=== PATIENT | female | born 1955 | race African-American/Black ===

== ENCOUNTER → 2016-12-11 | Outpatient (CLI) | payer BC ==
[2016-08-09 06:45] VITALS: BP 163/79
[~2016-12-11] MED LIST: ATEN25TA PO; CYCL5TAB PO; FURO-68 PO
--- NOTE | 2016-12-11 12:51 | RAD ---
EXAM: Right hand, 3 views. HISTORY: Pain. COMPARISON: None. FINDINGS: Frontal, lateral and oblique views of the right hand are obtained. There is no fracture, dislocation or subluxation. There is mild first carpometacarpal spurring. IMPRESSION: 1. No acute osseous finding. 2. Mild first carpometacarpal osteoarthritis.
== END | disposition home or self-care (01) ==
LOC: RAD 10:55
PROVIDERS: ATTEND Internal Medicine
DX: M19.041 Primary osteoarthritis, right hand (principal)
CPT/HCPCS: 73130

== ENCOUNTER → 2017-04-04 | Outpatient (CLI) | payer BC ==
[2016-08-09 06:45] VITALS: BP 163/79
[2017-04-04 11:11] LABS: BASO % 0 % (0-3); EOS % 1 % (0-3); HEMATOCRIT 37.2 % (36.0-47.0); HEMOGLOBIN 11.8 g/dL (12.0-15.5); LYMPH # 1.5 x10^3/uL (1.0-4.8); LYMPH % 36 % (24-48); MEAN CORPUSCULAR HEMOGLOBIN 25 pg (25-35); MEAN CORPUSCULAR HGB CONC 32 g/dL (31-37); MEAN CORPUSCULAR VOLUME 79 fL (79-100); MONO % 8 % (0-9); NEUT % 54 % (31-73); PLATELET COUNT 206 x10^3/uL (140-400); RED BLOOD COUNT 4.72 x10^6/uL (3.50-5.40); RED CELL DISTRIBUTION WIDTH 14.9 % (11.5-14.5); WHITE BLOOD COUNT 4.3 x10^3/uL (4.0-11.0)
[2017-04-04 11:38] LABS: BACTERIA,URINE MANY /HPF (0-FEW); BILIRUBIN,URINE NEGATIVE (NEG); GLUCOSE,URINE NEGATIVE (NEG); NITRITE,URINE POSITIVE (NEG); PROTEIN,URINE NEGATIVE (NEG-TRACE); RBC,URINE 0 /HPF (0-2); SQUAMOUS EPITHELIAL CELL,UR MOD /LPF; WBC,URINE OCC /HPF (0-4)
[2017-04-04 12:10] LABS: ALBUMIN 3.4 g/dL (3.4-5.0); ALBUMIN/GLOBULIN RATIO 0.8 (1.0-1.7); CALCIUM 9.2 mg/dL (8.5-10.1); CREATININE 0.9 mg/dL (0.6-1.0); POTASSIUM 3.8 mmol/L (3.5-5.1); TOTAL BILIRUBIN 0.6 mg/dL (0.2-1.0); TOTAL PROTEIN 7.9 g/dL (6.4-8.2)
[2017-04-04 12:11] LABS: CHOLESTEROL/HDL RATIO 2.7
== END | disposition home or self-care (01) ==
LOC: LAB 10:23
PROVIDERS: ATTEND Internal Medicine
DX: I10 Essential (primary) hypertension (principal)
CPT/HCPCS: 36415; 80053; 80061; 81001; 83036; 84443; 85027; 87086; 87186

== ENCOUNTER 2017-07-02 10:44 | Inpatient (IN) | payer BC ==
[~2017-07-02] VITALS: Ht 152.4 cm; Wt 90.7 kg
[2017-07-02] MEDS ORDERED: ASPIRIN CHEWABLE 81 MG TABLET. PO ONE (11:00)
[2017-07-02 11:04] LABS: BASO % 1 % (0-3); EOS % 1 % (0-3); HEMATOCRIT 38.3 % (36.0-47.0); HEMOGLOBIN 12.3 g/dL (12.0-15.5); LYMPH # 2.3 x10^3/uL (1.0-4.8); LYMPH % 39 % (24-48); MEAN CORPUSCULAR HEMOGLOBIN 25 pg (25-35); MEAN CORPUSCULAR HGB CONC 32 g/dL (31-37); MEAN CORPUSCULAR VOLUME 78 fL (79-100); MONO % 9 % (0-9); NEUT % 50 % (31-73); PLATELET COUNT 206 x10^3/uL (140-400); RED CELL DISTRIBUTION WIDTH 15.4 % (11.5-14.5); WHITE BLOOD COUNT 5.9 x10^3/uL (4.0-11.0)
--- NOTE | 2017-07-02 11:11 | EKG ---
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
[2017-07-02 11:17] LABS: CALCIUM 9.4 mg/dL (8.5-10.1); CREATININE 0.9 mg/dL (0.6-1.0); GFR 76.8; POTASSIUM 3.6 mmol/L (3.5-5.1)
[2017-07-02 11:23] LABS: ALBUMIN 3.7 g/dL (3.4-5.0); DIRECT BILIRUBIN 0.1 mg/dL (0.0-0.2); TOTAL BILIRUBIN 0.6 mg/dL (0.2-1.0); TOTAL PROTEIN 8.2 g/dL (6.4-8.2)
--- NOTE | 2017-07-02 11:30 | RAD ---
AP chest radiograph 07/02/2017 Clinical indication: Shortness of breath and chest tightness for 5 days. Comparison: Chest radiograph 10/07/2012. Findings: Cardiac and mediastinal silhouettes are within normal limits. 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 No pleural effusion, pneumothorax or focal consolidation. Impression: No acute cardiopulmonary abnormality.
--- NOTE | 2017-07-02 11:46 | PHYS DOC ---
Past Medical History Past Medical History: Hypertension, Other Additional Past Medical Histor: bilateral lower edema Past Surgical History: Hysterectomy, Knee Replacement Alcohol Use: None Drug Use: None Adult General Chief Complaint Chief Complaint: CHEST PAIN HPI HPI 62-year-old female presenting to the emergency department today with chest pain. She describes it as a burning sensation is worse when she lays down and increased when she sits up. It radiates to the left arm. It is mild and currently improving.The patient denies unilateral leg swelling hemoptysis family or personal history of blood clotting disorders. The pt denies recent immobilization or surgery. She has a history of high blood pressure and high cholesterol with a 10 year pack smoking history. The pain is been present for more than 24 hours. She denies seeing a heart doctor or having a pan shaker. Review of systems is negative for fevers chills cough abdominal pain nausea vomiting or diaphoresis. All other review of systems is negative unless otherwise noted in history of present illness. ED course: 62-year-old female presenting to the emergency department with chest pain. Triage vital signs showed normal heart rate. Afebrile. Pressure initially elevated 193/106. Without intervention the patient's blood pressure came down to 167/77 recorded at 11:41 AM by myself. Otherwise the patient's EKG is unremarkable.EKG shows sinus rhythm with regular rate. Normal intervals. Normal axis. ST segments are congruent. Not suggestive of ACS. Reviewed by myself. Chest x-ray is unremarkable.Chest x-ray reviewed by myself shows no obvious infiltrate or pneumothorax present. No obvious acute cardiopulmonary process present. Blood tests unremarkable. Troponin negative. Heart score 4. The patient was then admitted for serial troponins cardiac consultation further evaluation workup and care. Review of Systems Review of Systems SEE ABOVE. Current Medications Current Medications Current Medications Medications (Trade) Dose Ordered Sig/Krish Start Time Stop Time Status Last Admin Dose Admin Aspirin (Children'S Aspirin) 324 mg 1X ONCE 07/02/17 11:00 07/02/17 11:01 DC 07/02/17 12:07 324 MG Allergies Allergies Allergies Coded Allergies Type Severity Reaction Last Updated Verified No Known Drug Allergies 01/25/14 No Physical Exam Physical Exam SEE ABOVE Constitutional: Well developed, well nourished, no acute distress, non-toxic appearance. [] HENT: Normocephalic, atraumatic, bilateral external ears normal, oropharynx moist, no oral exudates, nose normal. [] Eyes: PERRLA, EOMI, conjunctiva normal, no discharge. [] Neck: Normal range of motion, no tenderness, supple, no stridor. [] Cardiovascular:Heart rate regular rhythm, no murmur [] Lungs & Thorax: Bilateral breath sounds clear to auscultation [] Abdomen: Bowel sounds normal, soft, no tenderness, no masses, no pulsatile masses. [] Skin: Warm, dry, no erythema, no rash. [] Back: No tenderness, no CVA tenderness. [] Extremities: No tenderness, no cyanosis, no clubbing, ROM intact, no edema. [] Neurologic: Alert and oriented X 3, normal motor function, normal sensory function, no focal deficits noted. [] Psychologic: Affect normal, judgement normal, mood normal. [] Current Patient Data Vital Signs Vital Signs Date Time Temp Pulse Resp B/P (MAP) Pulse Ox O2 Delivery O2 Flow Rate FiO2 07/02/17 12:27 58 17 143/64 (90) 100 Room Air 07/02/17 10:50 97.7 97.7 Lab Values Laboratory Tests Test 07/02/17 10:54 White Blood Count 5.9 x10^3/uL (4.0-11.0) Red Blood Count 4.90 x10^6/uL (3.50-5.40) Hemoglobin 12.3 g/dL (12.0-15.5) Hematocrit 38.3 % (36.0-47.0) Mean Corpuscular Volume 78 fL (79-100) L Mean Corpuscular Hemoglobin 25 pg (25-35) Mean Corpuscular Hemoglobin Concent 32 g/dL (31-37) Red Cell Distribution Width 15.4 % (11.5-14.5) H Platelet Count 206 x10^3/uL (140-400) Neutrophils (%) (Auto) 50 % (31-73) Lymphocytes (%) (Auto) 39 % (24-48) Monocytes (%) (Auto) 9 % (0-9) Eosinophils (%) (Auto) 1 % (0-3) Basophils (%) (Auto) 1 % (0-3) Neutrophils # (Auto) 2.9 x10^3uL (1.8-7.7) Lymphocytes # (Auto) 2.3 x10^3/uL (1.0-4.8) Monocytes # (Auto) 0.6 x10^3/uL (0.0-1.1) Eosinophils # (Auto) 0.1 x10^3/uL (0.0-0.7) Basophils # (Auto) 0.0 x10^3/uL (0.0-0.2) Sodium Level 142 mmol/L (136-145) Potassium Level 3.6 mmol/L (3.5-5.1) Chloride Level 103 mmol/L (98-107) Carbon Dioxide Level 31 mmol/L (21-32) Anion Gap 8 (6-14) Blood Urea Nitrogen 12 mg/dL (7-20) Creatinine 0.9 mg/dL (0.6-1.0) Estimated GFR (Cockcroft-Gault) 76.8 Glucose Level 116 mg/dL (70-99) H Calcium Level 9.4 mg/dL (8.5-10.1) Total Bilirubin 0.6 mg/dL (0.2-1.0) Direct Bilirubin 0.1 mg/dL (0.0-0.2) Aspartate Amino Transferase (AST) 28 U/L (15-37) Alanine Aminotransferase (ALT) 42 U/L (14-59) Alkaline Phosphatase 133 U/L (46-116) H Troponin I Quantitative < 0.017 ng/mL (0.000-0.055) MC-Iff-C-Type Natriuretic Peptide 69 pg/mL (0-124) Total Protein 8.2 g/dL (6.4-8.2) Albumin 3.7 g/dL (3.4-5.0) Lipase 120 U/L (73-393) Laboratory Tests 07/02/17 10:54 Laboratory Tests 07/02/17 10:54 EKG EKG [] Radiology/Procedures Radiology/Procedures [] Course & Med Decision Making Course & Med Decision Making Pertinent Labs and Imaging studies reviewed. (See chart for details) [] Dragon Disclaimer Dragon Disclaimer This electronic medical record was generated, in whole or in part, using a voice recognition dictation system. Departure Departure Impression: Primary Impression: Chest pain Disposition: ADMITTED INPATIENT Admitting Physician: Otilia Peres Condition: STABLE Referrals: OTILIA PERES MD (PCP) SAKSHI CORDERO MD Jul 02, 2017 11:46
--- NOTE | 2017-07-02 13:13 | PDOC2 ---
CARDIAC CONSULT DATE OF CONSULT Date of Consult DATE: 07/02/17 TIME: 13:09 REASON FOR CONSULT Reason for Consult: Chest pain REFERRING PHYSICIAN Referring Physician: Dr. Barragan SOURCE Source: Chart review, Patient HISTORY OF PRESENT ILLNESS HISTORY OF PRESENT ILLNESS This is a 62 yo female who presented with complaints of chest pain. Patient reports pain has been ongoing since last . Located in her left chest. Describes as heaviness/pressure. Feels like "gas." Had multiple 7ups without relief. Took Zantac and Tums with mild improvement in the pain for a short period of time. Would return within an hour or so. This morning while at work, developed sharp pain in the left chest. Lasted for approximately 5 minutes and resolved without intervention. No associated dizziness, diaphoresis, palpitations, SOA, diaphoresis, or nausea/vomiting. No recent BOURGEOIS. Does have a h /o GERD, but reports pain to be very different than what she generally experiences. No prior history of CAD or cardiac workup. PAST MEDICAL HISTORY Cardiovascular: HTN, Hyperlipidemia Pulmonary: No pertinent hx CENTRAL NERVOUS SYSTEM: Other (no pertinent history ) GI: GERD Heme/Onc: Anemia NOS Hepatobiliary: No pertinent hx Psych: No pertinent hx Musculoskeletal: Osteoarthritis Rheumatologic: No pertinent hx Infectious disease: No pertinent hx ENT: No pertinent hx Renal/: No pertinent hx Endocrine: No pertinent hx Dermatology: No pertinent hx PAST SURGICAL HISTORY Past Surgical History: Total knee replacement (right ), Hysterectomy FAMILY HISTORY Family History: Diabetes, Hypertension SOCIAL HISTORY Smoke: No ALCOHOL: none Drugs: None Lives: with Family CURRENT MEDICATIONS CURRENT MEDICATIONS Current Medications Medications (Trade) Dose Ordered Sig/Krish Route PRN Reason Start Time Stop Time Status Last Admin Dose Admin Aspirin (Children'S Aspirin) 324 mg 1X ONCE PO 07/02/17 11:00 07/02/17 11:01 DC 07/02/17 12:07 ALLERGIES ALLERGIES: Coded Allergies: No Known Drug Allergies (Unverified , 01/25/14) ROS Review of System 14 point ROS conducted with pertinent positives noted above in HPI. PHYSICAL EXAM General: Alert, Oriented X3, Cooperative HEENT: Atraumatic Lungs: Clear to auscultation, Normal air movement Heart: Normal S1, Normal S2, Other (tele SB rate 56) Abdomen: Soft, No tenderness Extremities: Normal pulses, Other (1-2+ bilateral LE edema ) Skin: No significant lesion Neuro: Normal speech, Sensation intact Psych/Mental Status: Mental status NL, Mood NL MUSCULOSKELETAL: No joint tenderness VITALS VITALS Vital Signs Date Time Temp Pulse Resp B/P (MAP) Pulse Ox O2 Delivery O2 Flow Rate FiO2 07/02/17 12:27 58 17 143/64 (90) 100 Room Air 07/02/17 10:50 97.7 97.7 LABS Lab: Laboratory Tests Test 07/02/17 10:54 White Blood Count 5.9 x10^3/uL (4.0-11.0) Red Blood Count 4.90 x10^6/uL (3.50-5.40) Hemoglobin 12.3 g/dL (12.0-15.5) Hematocrit 38.3 % (36.0-47.0) Mean Corpuscular Volume 78 fL (79-100) Mean Corpuscular Hemoglobin 25 pg (25-35) Mean Corpuscular Hemoglobin Concent 32 g/dL (31-37) Red Cell Distribution Width 15.4 % (11.5-14.5) Platelet Count 206 x10^3/uL (140-400) Neutrophils (%) (Auto) 50 % (31-73) Lymphocytes (%) (Auto) 39 % (24-48) Monocytes (%) (Auto) 9 % (0-9) Eosinophils (%) (Auto) 1 % (0-3) Basophils (%) (Auto) 1 % (0-3) Neutrophils # (Auto) 2.9 x10^3uL (1.8-7.7) Lymphocytes # (Auto) 2.3 x10^3/uL (1.0-4.8) Monocytes # (Auto) 0.6 x10^3/uL (0.0-1.1) Eosinophils # (Auto) 0.1 x10^3/uL (0.0-0.7) Basophils # (Auto) 0.0 x10^3/uL (0.0-0.2) Sodium Level 142 mmol/L (136-145) Potassium Level 3.6 mmol/L (3.5-5.1) Chloride Level 103 mmol/L (98-107) Carbon Dioxide Level 31 mmol/L (21-32) Anion Gap 8 (6-14) Blood Urea Nitrogen 12 mg/dL (7-20) Creatinine 0.9 mg/dL (0.6-1.0) Estimated GFR (Cockcroft-Gault) 76.8 Glucose Level 116 mg/dL (70-99) Calcium Level 9.4 mg/dL (8.5-10.1) Total Bilirubin 0.6 mg/dL (0.2-1.0) Direct Bilirubin 0.1 mg/dL (0.0-0.2) Aspartate Amino Transf (AST/SGOT) 28 U/L (15-37) Alanine Aminotransferase (ALT/SGPT) 42 U/L (14-59) Alkaline Phosphatase 133 U/L (46-116) Troponin I Quantitative < 0.017 ng/mL (0.000-0.055) HX-Fwk-T-Type Natriuretic Peptide 69 pg/mL (0-124) Total Protein 8.2 g/dL (6.4-8.2) Albumin 3.7 g/dL (3.4-5.0) Lipase 120 U/L (73-393) ASSESSMENT/PLAN ASSESSMENT/PLAN 1. Chest pain, with atypical features. Initial troponin normal. EKG 2. Malignant hypertension, POA. Now better controlled 3. Hyperlipidemia 4. GERD Recommendations Resume antiHTN therapy. Monitor to assess need for therapy titration. Hydralazine IV PRN Check lipids, TSH, and echo to assess LV function Trend troponin levels ASA. Given risk factors, will proceed with MPI, 2-day protocol with resting images today. NPO after MN. Problems: NGOZI SERVIN APRN Jul 02, 2017 13:13
[2017-07-02] MEDS ORDERED: ONDANSETRON PF 4 MG/2 ML VIAL. IV PRN (14:15)
[2017-07-02] MEDS ORDERED: NITROGLYCERIN SUBLINGUAL 0.4 MG BOTTLE OF 25. SL PRN (14:15)
[2017-07-02] MEDS ORDERED: MORPHINE SULFATE 2 MG/ML DISP.SYRIN. IV PRN (14:15)
[2017-07-02] MEDS ORDERED: hydrALAZINE 20 MG/ML VIAL. IVP PRN (14:15)
[2017-07-02 15:00] VITALS: BP 138/66
[2017-07-02] MEDS: LISINOPRIL 5 MG TABLET. PO SCH (15:00)
[2017-07-02 19:00] VITALS: BP 124/65
[2017-07-02 21:01] VITALS: BP 138/66
[2017-07-02] MEDS ORDERED: ATOR20TA58 PO (21:17)
[2017-07-02] MEDS ORDERED: TRAM50TA PO (21:17)
[2017-07-02] MEDS ORDERED: NAPR500T3 PO (21:17)
[2017-07-02] MEDS ORDERED: PANT40TA3 PO (21:17)
[2017-07-02] MEDS ORDERED: POTASSIUM CHLO10 MEQ PO (21:17)
[2017-07-02] MEDS ORDERED: traMADol 50 MG TABLET PO PRN (22:15)
[2017-07-02] MEDS ORDERED: CYCLOBENZAPRINE 10 MG TABLET. PO PRN (22:15)
[2017-07-02] MEDS ORDERED: ENOXAPARIN 40 MG/0.4 ML SYRINGE. SQ SCH (22:30)
[2017-07-02] MEDS ORDERED: ATORVASTATIN CALCIUM 20 MG TABLET PO SCH (22:30)
[2017-07-02 23:00] VITALS: BP 105/57
[2017-07-03 02:07] LABS: BASO % 0 % (0-3); EOS % 2 % (0-3); HEMATOCRIT 34.2 % (36.0-47.0); HEMOGLOBIN 10.8 g/dL (12.0-15.5); LYMPH % 52 % (24-48); MEAN CORPUSCULAR HEMOGLOBIN 25 pg (25-35); MEAN CORPUSCULAR HGB CONC 32 g/dL (31-37); MEAN CORPUSCULAR VOLUME 80 fL (79-100); MONO % 8 % (0-9); NEUT % 38 % (31-73); PLATELET COUNT 166 x10^3/uL (140-400); RED CELL DISTRIBUTION WIDTH 15.8 % (11.5-14.5); WHITE BLOOD COUNT 5.7 x10^3/uL (4.0-11.0)
[2017-07-03 02:12] LABS: CALCIUM 8.2 mg/dL (8.5-10.1); CREATININE 0.8 mg/dL (0.6-1.0); GFR 87.9; POTASSIUM 3.9 mmol/L (3.5-5.1)
[2017-07-03 02:19] LABS: CHOLESTEROL/HDL RATIO 2.1
--- NOTE | 2017-07-03 02:27 | ACF ---
Admission Forms Criteria CHEST PAIN Clinical Indications for Admission to Inpatient Care (Place 'X' for any and all applicable criteria): Admission is indicated for chest pain and ANY ONE of the following(1)(2)(3)(4)(5 ): [ ]I. Angina with acute coronary syndrome (Also use Myocardial Infarction or Angina guideline) [ ]II. Hemodynamic instability [ ]III. Angina needing acute intervention as indicated by ALL of the following( 11)(12): [ ]a) Unstable angina is present as indicated by angina that is ANY ONE of the following: [ ]i) New onset [ ]ii) Nocturnal [ ]iii) Prolonged at rest [ ]iv) Progressive [ ]b) Angina warrants acute intervention as indicated by ANY ONE of the following: [ ]i) Recurrent angina (e.g, not responding as previously to treatment) [ ]ii) Angina at rest or with low-level activities despite initial medical therapy [ ]iii) New or presumably new ST-segment depression on ECG [ ]iv) Signs or symptoms of heart failure (eg, dyspnea, pulmonary edema) [ ]v) New or worsening mitral regurgitation [ ]vi) Hemodynamic instability [ ]vii) Dangerous arrhythmia (eg, sustained ventricular tachycardia) [ ]viii) History of percutaneous coronary intervention within 6 months [ ]ix) History of coronary artery bypass graft surgery [ ]x) QING risk score of 2 or greater[A] [ ]xi) History of Diabetes(14) [ ]xii) High-risk cardiac ischemia findings on noninvasive testing (e.g, echocardiogram, treadmill testing, nuclear scan) [ ]xiii) Chronic renal insufficiency (ie, estimated GFR less than 60 mL/min/1.732m) [ ]xiv) Left ventricular ejection fraction less than 40% [ ]IV. Evidence of IN (eg, cardiac biomarkers positive, ST-segment elevation on ECG) also use Myocardial Infarction Criteria Form. [ ]V. Pulmonary edema [ ]. Respiratory distress [ ]VII. Chest pain indicative of serious diagnosis other than coronary artery disease (eg, aortic dissection) [ ]VIII. Contraindications and/or Inappropriate clinical situations for Observational Care in patients with Chest Pain, when ANY ONE of the following is required: [ ]a) Patient with risk factor for pulmonary embolism, acute coronary syndrome and myocardial infarction (18) [ ]b) Patient with Pulmonary embolism require an average LOS of 4.3 days, therefore emergency department observation management is inappropriate 18,23 [ ]c) Painful condition/s in the elderly, have the highest rate of recidivism after emergency department observation management (10.8%) 20,21,22 [ ]d) Elevated cardiac biomarker requires intensive and exhaustive care (19) [X]IX. General contraindications and/or Inappropriate clinical situations for Observational Care in patients with Chest Pain, when ANY ONE of the following is required: [X]a) Prediction of prolongation of LOS based on ANY ONE of the following may be considered as a contraindication for observational care 2, 3, 4, 5, 6, 7, 8, 9, 10, 11 [ ]i) Age > 65 yrs. [ ]ii) Patient arriving by ambulance [ ]iii) Patient with high acuity [X]iv) Patient requiring vital sign monitoring [ ]v) Patient on IV medication [ ]b) Systolic blood pressures 180mmHg 3,12 [ ]c) Patient with altered mental status including delirium and other alteration of consciousness, (3) [ ]d) Patient whose discharge disposition will be to a shelter home or rehabilitation home should not be managed in Emergency Department Observation Unit. CMS rule requires 3 days hospital stay before such placement. 3,13 [ ]e) Patient with failure to thrive due to broad array of etiologies 3,16,17 [ ]f) Inability to ambulate 3,14 Extended stay beyond goal length of stay may be needed for (1)(28): [ ]a) Specific condition diagnosed after evaluation (eg, pulmonary embolism, aortic dissection) [ ]b) Unstable angina [ ]c) Continued suspicion of acute coronary syndrome with inability to complete needed cardiac evaluation (eg, patient clinically unable to undergo stress testing) [ ]d) Myocardial infarction (Contents from ANGINA and CHEST PAIN clinical indications for admission to inpatient care have been integrated in this form) The original [facility] content created by [employer] has been revised. The portions of the content which have been revised are identified through the use of italic text or in bold, and [facility] has neither reviewed nor approved the modified material. All other unmodified content is copyright [facility]. Please see references footnoted in the original [facility] [employer] edition 2016 Admission Criteria Met?: Yes ARLYN LUNDY Jul 03, 2017 02:27
[2017-07-03 07:00] VITALS: BP 129/66
[2017-07-03] MEDS ORDERED: PANTOPRAZOLE 40 MG TABLET.DR. PO SCH (07:30)
[2017-07-03] MEDS ORDERED: ASPIRIN ENTERIC COATED 81 MG TABLET.DR. PO SCH (08:00)
[2017-07-03] MEDS ORDERED: POTASSIUM CHLORIDE 8 MEQ TABLET.ER. PO SCH (08:00)
[2017-07-03] MEDS ORDERED: REGADENOSON 0.4 MG/5 ML DISP.SYRIN. IV ONE (08:15)
[2017-07-03] MEDS ORDERED: NAPROXEN 500 MG TABLET PO SCH (09:00)
[2017-07-03] MEDS ORDERED: ATENOLOL 25 MG TABLET. PO SCH (09:00)
[2017-07-03] MEDS ORDERED: FUROSEMIDE 40 MG TABLET. PO SCH (09:00)
[2017-07-03] MEDS: LISINOPRIL 5 MG TABLET. PO SCH (09:54)
[2017-07-03 10:39] VITALS: BP 147/94
--- NOTE | 2017-07-03 12:35 | PDOC ---
CARDIO Progress Notes Date and Time Date of Service 07/03/17 Time of Evaluation 1215 Subjective Subjective: No Chest Pain, No shortness of breath, No Palpitations Vitals Vitals Vital Signs Date Time Temp Pulse Resp B/P (MAP) Pulse Ox O2 Delivery O2 Flow Rate FiO2 07/03/17 10:39 97.6 80 16 147/94 (111) 99 Room Air 97.6 Weight Weight [ ] Input and Output Intake and Output Intake and Output 07/03/17 07:00 Intake Total 640 ml Balance 640 ml Intake Oral 640 ml # Voids 4 Laboratory Labs Laboratory Tests Test 07/02/17 19:45 07/03/17 01:55 Troponin I Quantitative < 0.017 ng/mL (0.000-0.055) < 0.017 ng/mL (0.000-0.055) White Blood Count 5.7 x10^3/uL (4.0-11.0) Red Blood Count 4.30 x10^6/uL (3.50-5.40) Hemoglobin 10.8 g/dL (12.0-15.5) Hematocrit 34.2 % (36.0-47.0) Mean Corpuscular Volume 80 fL (79-100) Mean Corpuscular Hemoglobin 25 pg (25-35) Mean Corpuscular Hemoglobin Concent 32 g/dL (31-37) Red Cell Distribution Width 15.8 % (11.5-14.5) Platelet Count 166 x10^3/uL (140-400) Neutrophils (%) (Auto) 38 % (31-73) Lymphocytes (%) (Auto) 52 % (24-48) Monocytes (%) (Auto) 8 % (0-9) Eosinophils (%) (Auto) 2 % (0-3) Basophils (%) (Auto) 0 % (0-3) Neutrophils # (Auto) 2.1 x10^3uL (1.8-7.7) Lymphocytes # (Auto) 3.0 x10^3/uL (1.0-4.8) Monocytes # (Auto) 0.4 x10^3/uL (0.0-1.1) Eosinophils # (Auto) 0.1 x10^3/uL (0.0-0.7) Basophils # (Auto) 0.0 x10^3/uL (0.0-0.2) Sodium Level 143 mmol/L (136-145) Potassium Level 3.9 mmol/L (3.5-5.1) Chloride Level 109 mmol/L (98-107) Carbon Dioxide Level 31 mmol/L (21-32) Anion Gap 3 (6-14) Blood Urea Nitrogen 11 mg/dL (7-20) Creatinine 0.8 mg/dL (0.6-1.0) Estimated GFR (Cockcroft-Gault) 87.9 Glucose Level 96 mg/dL (70-99) Calcium Level 8.2 mg/dL (8.5-10.1) Triglycerides Level 67 mg/dL (0-150) Cholesterol Level 135 mg/dL (0-200) LDL Cholesterol, Calculated 59 mg/dL (0-100) VLDL Cholesterol, Calculated 13 mg/dL (0-40) Non-HDL Cholesterol Calculated 72 mg/dL (0-129) HDL Cholesterol 63 mg/dL (40-60) Cholesterol/HDL Ratio 2.1 Thyroid Stimulating Hormone (TSH) 2.013 uIU/mL (0.358-3.74) Physical Exam HEENT: Neck Supple W Full Motion Chest: Symmetric LUNGS: Clear to Auscultation Heart: S1S2, RRR, no murmurs Abdomen: Soft N/T Extremities: 2+ Dorsalis Pedis, Other (1+ bilateral LE edema ) Neurology: alert, oriented, follow commands Assessment Assessment 1. Chest pain, with atypical features. troponin series normal, AMI ruled out. MPI pending. Echo to be conducted today. 2. Malignant hypertension, POA. Now controlled. Continue present therapy 3. Hyperlipidemia; LDL 59. statin therapy 4. GERD; on PPI Recommendations Await MPI and echo result. If echo WNL and MPI without evidence of reversible ischemia, may discharge home from a CV perspective. NGOZI SERVIN APRN Jul 03, 2017 12:35
--- NOTE | 2017-07-03 13:50 | RAD ---
APPROVED REPORT Test Type: Pharmacological Stress Nurse/Tech: Rosalee Ho R.N. Test Indications: c/p Cardiac History: obesity Medications: See Electronic Medical Record Medical History: See Electronic Medical Record Resting ECG: SR Resting Heart Rate: 66 bpm Resting Blood Pressure: 126/71mmHg Pretest Chest Pain: No chest pain Nurse/Tech Notes S1S2, lungs CTA Consent: The procedure was explained to the patient in lay terms. Informed consent was witnessed. Rocco eout was entered into [employer]. History and Stress Test performed by RT Real (R) (N) Pharm. Details Pharmacologic stress testing was performed using 0.4mg per 5ml of regadenoson given intravenously ove r 7-10 seconds. Stress Symptoms slight dyspnea for a few minutes POST EXERCISE Reason for Termination: Infusion complete Max HR: 108 bpm Max Blood Pressure: 138/74mmHg Blood Pressure response to exercise: Normal blood pressure response during stress. Heart Rate response to exercise: wnl Chest Pain: No. Arrhythmia: No. ST Change: No. INTERPRETATION Stress EKG Conclusion: The resting EKG shows a sinus rhythm and mild nonspecific ST changes. The strss EKG shows no significant changes from baseline. No EKG evidence of stress induced ischemia. Imaging Protocol IMAGE PROTOCOL: Rest Tc-99m/stress Tc-99m 2 days Rest: Stress: Viability: Radiopharm.Tc99m TbnzcrpvkIs45p Sestamibi Kuuc39bJm 34mCi Img Date 07/02/2017 07/03/2017 Inj-Img [id number]. 60min. Rest Admin Site:IV - Right AntecubitalAdministrator:RT Real (R)(N) Stress Admin Site: IV - Right AntecubitalAdministrator: RT Real (R)(N) STRESS DATA End Diast. Vol.84.0mlAv. Heart Rate62.0bpm End Syst. Vol.22.0mlCO Index BSA0.0L/min Myocardial Vosq131.0gEject. Ffwidxye19.0% Stress Rates Pk. Fill Rate2.60EDV/secLVtime Pk. Fill 279.12msec Pk. Empty Rate3.48ESV/secLVtime Pk. Wpxjx462.81msec 12/04 Pk. Fill1.22EDV/sec Stress Scores Regional WT1.00Summed WT7.00 Regional WM0.00Summed WM0.00 LV Perfusion The stress scans show no significant defects. The rest scans show no significant defects. Nuclear imaging shows no reversible ischemia or infarct. Wall Motion Normal LV systolic function with an ejection fraction of > 70%. LV Perf. Quant 17 Seg. SSS3.00 17 Seg. SRS5.00 17 Seg. SDS0.00 Stress Defect Extent (% LAD)3.80Rest Defect Extent (% LAD)2.50Rev. Defect Extent (% LAD)0.00 Stress Defect Extent (% LCX) 13.80Rest Defect Extent (% LCX)18.80Rev. Defect Extent (% LCX)0.00 Stress Defect Extent (% RCA)0.00Rest Defect Extent (% RCA)1.10Rev. Defect Extent (% RCA)0.00 Stress Defect Extent (% DORON)7.80Rest Defect Extent (% DORON)9.80Rev. Defect Extent (% DORON)0.00 Conclusion 1. No EKG evidence of stress induced ischemia. 2. Nuclear imaging shows no reversible ischemia or infarct. 3. Normal LV systolic function with an ejection fraction of > 70%. 4. Low risk Lexiscan nuclear stress test.
--- NOTE | 2017-07-03 14:52 | CARD ---
APPROVED REPORT EXAM: Two-dimensional and M-mode echocardiogram with Doppler and color Doppler. Other Information Quality : Average Rhythm : NSR INDICATION Chest Pain 2D DIMENSIONS RVDd3.1 (2.9-3.5cm)Left Atrium(2D)3.8 (1.6-4.0cm) IVSd0.8 (0.7-1.1cm)Aortic Root(2D)2.5 (2.0-3.7cm) LVDd4.2 (3.9-5.9cm)LVOT Diameter2.0 (1.8-2.4cm) PWd0.8 (0.7-1.1cm)LVDs2.8 (2.5-4.0cm) FS (%) 33.0 %SV48.2 ml LVEF(%)62.0 (>50%) Aortic Valve AoV Peak Anshu.172.1cm/sAoV VTI39.5cm AO Peak GR.11.8mmHgLVOT Peak Anshu.119.3cm/s LVOT VTI 31.67cmAO Mean GR.7mmHg BRITNEY (VMAX)2.56bu3YZZ (VTI)2.56cm2 Mitral Valve MV E Obgtjmvh711.7cm/sMV DECEL PMDO371ti MV A Lipotywm60.7cm/sMV STG28pp E/A Ratio1.0MV A Ctdbqhpi986zx MVA (PHT)2.88cm2 TDI E/Lateral E'9.1E/Medial E'10.2 Pulmonary Valve PV Peak Tevbehfb420.3cm/sPV Peak Grad.4mmHg RVOT VTI28.0cm Tricuspid Valve TR P. Osyzuidq801wo/sRAP IYUBBYVT1cvTl TR Peak Gr.85umGqVIIF04dkYq Pulmonary Vein S1 Gmayyvxl28.8cm/sD2 Eopbfejg25.6cm/s LEFT VENTRICLE The left ventricle is normal size. There is normal left ventricular wall thickness. Left ventricle sy stolic function is normal. The Ejection Fraction is 60-65%. There is normal LV segmental wall motion. The left ventricular diastolic function and filling is normal for age. There is no ventricular septa l defect visualized. RIGHT VENTRICLE The right ventricle is normal size. The right ventricular systolic function is normal. ATRIA The left atrium size is normal. The right atrium size is normal. The interatrial septum is intact wit h no evidence for an atrial septal defect or patent foramen ovale as noted on 2-D or Doppler imaging. AORTIC VALVE The aortic valve is normal in structure and function. The aortic valve is trileaflet. Doppler and Col or Flow revealed no significant aortic regurgitation. There is no significant aortic valvular stenosi s. MITRAL VALVE The mitral valve is normal in structure. There is no mitral valve stenosis. Doppler and Color Flow re vealed mild mitral regurgitation. TRICUSPID VALVE The tricuspid valve is normal in structure. Doppler and Color Flow revealed mild tricuspid regurgitat ion. The PA pressure was estimated at 30 mmHg. There is no tricuspid valve stenosis. PULMONIC VALVE The pulmonic valve is not well visualized. Doppler and Color Flow revealed no pulmonic valvular regur gitation. There is no pulmonic valvular stenosis. GREAT VESSELS The aortic root is normal in size. The ascending aorta is normal in size. Normal pulmonary venous sheri w (Doppler). The IVC is normal in size and collapses >50% with inspiration. PERICARDIAL EFFUSION There is no evidence of significant pericardial effusion. Critical Notification Critical Value: No <Conclusion> Left ventricle systolic function is normal. The Ejection Fraction is 60-65%. There is normal LV segmental wall motion. Mild mitral regurgitation. Mild tricuspid regurgitation. The PA pressure was estimated at 30 mmHg. There is no evidence of significant pericardial effusion.
[2017-07-03 15:01] VITALS: BP 144/84
[2017-07-03] MEDS ORDERED: LISI-338 PO (16:46)
--- NOTE | 2017-07-03 16:52 | PDOC ---
Provider Note Provider Note Pt was seen.combined H&P dictated. #[id number]. OTILIA RICHARDS MD Jul 03, 2017 16:52
--- NOTE | 2017-07-03 21:25 | SSS ---
ADMIT DATE: 07/03/2017 COMBINED HISTORY AND PHYSICAL AND DISCHARGE PATIENT LOCATION: 4 REASON FOR ADMISSION TO THE HOSPITAL: Left-sided chest pain. Risk factors including obesity, hypertension, and hyperlipidemia. CONSULTATION: Dr. Barboza. PROCEDURES DONE: 1. Echocardiogram. 2. Nuclear stress test. COMPLICATION NOTED: None. HOSPITAL COURSE: The patient is a 62-year-old female. The patient had noticed chest pain in the left side and came to the Emergency Room, lasted for a couple of seconds, had an EKG negative. Chest x-ray was negative, was admitted for observation. The risk factors including obesity, hypertension, and hyperlipidemia. PAST MEDICAL HISTORY: Hypertension, hyperlipidemia, peptic ulcer disease, and lymphedema. PAST SURGICAL HISTORY: Includes knee replacement, right and hysterectomy. FAMILY HISTORY: Positive for diabetes and hypertension. SOCIAL HISTORY: No history of smoking, alcohol, or drug abuse. 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 ALLERGIES: No known allergies. MEDICATIONS AT HOME: The patient is on atenolol 25 mg daily, atorvastatin 20 mg daily, cyclobenzaprine 5 mg daily, Lasix 40 mg daily, naproxen 500 mg twice a day, Protonix 40 mg daily, potassium 10 mEq twice a day, and tramadol 50 mg daily. REVIEW OF SYMPTOMS: CARDIAC: Cardiac andrea had some chest pain mostly on the left side, lasting for a couple of seconds, less than a minute. GASTROINTESTINAL: No nausea or vomiting. NEUROLOGICAL: No weakness and rest of the 14-system was reviewed and negative. PHYSICAL EXAMINATION: VITAL SIGNS: The patient is a temperature 98, pulse 77, respirations 16, blood pressure 129/66, 100% on room air. HEENT: Head is atraumatic. Pupils equal. Oral cavity: No congestion. NECK: Supple. Thyroid not enlarged. JVD not elevated. CHEST: Symmetrical. CARDIOVASCULAR: S1, S2. LUNGS: Clear to auscultation. No chest wall tenderness. ABDOMEN: Soft, bowel sounds present, no mass palpable. EXTERNAL GENITALIA: No [facility]. RECTAL: Deferred. EXTREMITIES: No calf tenderness. The patient has a surgery in the right knee and chronic lymphedema, right lower extremity. NEUROLOGIC: Cranial nerves intact. Power 5/5 in all extremities. LABORATORY DATA: Shows a white count of 6, hemoglobin 12, platelets 206. Electrolytes show sodium 143, potassium 3.9, chloride 109, bicarbonate 31, glucose 96. troponin was negative. Cholesterol is 135, LDL 63. TSH 2.0. Had a chest x-ray, no acute abnormality. EKG negative for ischemia. FINAL IMPRESSION: 1. Chest pain for evaluation. 2. Hypertension. 3. Gastroesophageal reflux disease. 4. Lymphedema. PLAN/hospital course: At this time, the patient was admitted to the hospital for observation and had EKGs, cardiac enzymes were negative. Seen by Cardiology. Echocardiogram showed normal left ventricular function, had a stress test came back negative for ischemia. The patient was discharged home. OTILIA RICHARDS MD DR: REBEKA/darya JOB#: [id number] / [id number] JONNY
== END 2017-07-03 17:30 | disposition home or self-care (01) | DRG 313 ==
LOC: ER 10:44 → 5 SOUTH 12:47 → OBSVTOIN 22:13
PROVIDERS: ADMIT Internal Medicine; ATTEND Internal Medicine
DX: R07.89 Other chest pain (principal); E66.9 Obesity, unspecified; Z68.39 Body mass index [BMI] 39.0-39.9, adult; E78.00 Pure hypercholesterolemia, unspecified; E78.5 Hyperlipidemia, unspecified; I10 Essential (primary) hypertension; K21.9 Gastro-esophageal reflux disease without esophagitis; Z82.49 Family history of ischemic heart disease and other diseases of the circulatory system; Z83.3 Family history of diabetes mellitus; Z87.11 Personal history of peptic ulcer disease; Z87.891 Personal history of nicotine dependence; Z90.710 Acquired absence of both cervix and uterus; Z96.651 Presence of right artificial knee joint; D64.9 Anemia, unspecified; M19.90 Unspecified osteoarthritis, unspecified site; I89.0 Lymphedema, not elsewhere classified
CPT/HCPCS: 36415; 71010; 78452; 80048; 80061; 80076; 83690; 83880; 84443; 84484; 85027; 93005; 93017; 93306; 96374; 96375; 96376; A9500; G0378; G0379; J2785; 99285-25

== ENCOUNTER → 2017-12-31 | Outpatient (CLI) | payer BC ==
[2017-12-31 07:30] LABS: ADD MAN DIFF? NO
[2017-12-31 07:44] LABS: BASO % 0 % (0-3); EOS # 0.1 x10^3/uL (0.0-0.7); EOS % 2 % (0-3); HEMATOCRIT 38.2 % (36.0-47.0); HEMOGLOBIN 11.7 g/dL (12.0-15.5); LYMPH # 1.7 x10^3/uL (1.0-4.8); LYMPH % 37 % (24-48); MEAN CORPUSCULAR HEMOGLOBIN 25 pg (25-35); MEAN CORPUSCULAR HGB CONC 31 g/dL (31-37); MEAN CORPUSCULAR VOLUME 81 fL (79-100); MONO # 0.4 x10^3/uL (0.0-1.1); MONO % 9 % (0-9); NEUT # 2.4 x10^3uL (1.8-7.7); NEUT % 51 % (31-73); PLATELET COUNT 213 x10^3/uL (140-400); RED BLOOD COUNT 4.74 x10^6/uL (3.50-5.40); RED CELL DISTRIBUTION WIDTH 15.6 % (11.5-14.5); WHITE BLOOD COUNT 4.7 x10^3/uL (4.0-11.0)
[2017-12-31 07:49] LABS: ALBUMIN 3.4 g/dL (3.4-5.0); ALBUMIN/GLOBULIN RATIO 0.8 (1.0-1.7); ALK PHOS 110 U/L (46-116); ALT (SGPT) 34 U/L (14-59); ANION GAP 5 (6-14); AST (SGOT) 22 U/L (15-37); BLOOD UREA NITROGEN 16 mg/dL (7-20); BUN/CREATININE RATIO 20 (6-20); CALCIUM 8.8 mg/dL (8.5-10.1); CARBON DIOXIDE 30 mmol/L (21-32); CHLORIDE 105 mmol/L (98-107); CHOLESTEROL 161 mg/dL (0-200); CREATININE 0.8 mg/dL (0.6-1.0); GFR 87.9; GLUCOSE 119 mg/dL (70-99); HDLC 78 mg/dL (40-60); LDLC 75 mg/dL (0-100); NON-HDL CHOLESTEROL 83 mg/dL (0-129); POTASSIUM 3.5 mmol/L (3.5-5.1); SODIUM 140 mmol/L (136-145); TOTAL BILIRUBIN 0.4 mg/dL (0.2-1.0); TOTAL PROTEIN 7.8 g/dL (6.4-8.2); TRIGLYCERIDES 41 mg/dL (0-150); VLDLC 8 mg/dL (0-40)
[2017-12-31 07:52] LABS: CHOLESTEROL/HDL RATIO 2.1
[2017-12-31 08:01] LABS: THYROID STIM HORMONE (TSH) 1.018 uIU/mL (0.358-3.74)
[2017-12-31 10:37] LABS: BILIRUBIN,URINE NEGATIVE (NEG); CLARITY,URINE CLEAR; COLOR,URINE YELLOW; GLUCOSE,URINE NEGATIVE (NEG); NITRITE,URINE POSITIVE (NEG); PROTEIN,URINE NEGATIVE (NEG-TRACE)
[2017-12-31 11:15] LABS: BACTERIA,URINE MANY /HPF (0-FEW); RBC,URINE 0 /HPF (0-2); SQUAMOUS EPITHELIAL CELL,UR MOD /LPF
[2017-12-31 13:21] LABS: HEMOGLOBIN A1C 5.7 % (4.8-5.6)
== END | disposition home or self-care (01) ==
LOC: LAB 07:06
DX: Z00.01 Encounter for general adult medical examination with abnormal findings (principal); I10 Essential (primary) hypertension; E78.5 Hyperlipidemia, unspecified; R79.89 Other specified abnormal findings of blood chemistry
CPT/HCPCS: 36415; 80053; 80061; 81001; 83036; 84443; 85025; 87086; 87186

== ENCOUNTER → 2018-07-16 | Outpatient (CLI) | payer BC ==
[~2018-07-16] MED LIST changes: +ATOR20TA58 PO; +LISI-338 PO; +NAPR-514 PO; +PANT40TA3 PO; +POTA10TA12 PO; +TRAM50TA PO
--- NOTE | 2018-07-16 16:53 | RAD ---
MR#: [id number] Date of Study: 07/16/2018 Ordering Physician: ELAINA CANO, Referring Physician: ELAINA CANO, Tech: Diane Roe RDMS, RVT, RTR APPROVED REPORT Patient Location : OUT-PATIENT Indications Lower Extremity Edema : Bilateral Greater Saphenous Veins (GSV) Significant venous relux noted in the RIGHT GSV at the following levels : Superficial Femoral Junctio n, Proximal Thigh, Mid Thigh, Distal Thigh, Proximal Calf, Mid Calf Significant venous relux noted in the LEFT GSV at the following levels : Superficial Femoral Junction , Proximal Thigh, Mid Thigh, Distal Thigh, Proximal Calf, Mid Calf Findings Grayscale images of the bilateral saphenofemoral junctions not do not reveal any obvious evidence of thrombus. The right great saphenous vein measures approximate 5.1 mm with a reflux time of 1.5 second s. The right lesser saphenous vein does not show any evidence of reflux. The left greater saphenous v ein is not well visualized and grossly measures 6 mm in the proximal and midsegment and has a reflux time of 1.2 seconds. The below-knee greater saphenous veins bilaterally are not well visualized. The left lesser saphenous vein does not show any evidence of reflux. Critical Notification Critical Value: No <Conclusion> Probable severe right and mild left-sided reflux disease in the great saphenous veins Signed by : Elaina Cano, Electronically Approved : 07/16/2018 16:52:36
== END | disposition home or self-care (01) ==
LOC: US 13:02
PROVIDERS: ATTEND Internal Medicine Cardiovascular Disease
DX: I89.0 Lymphedema, not elsewhere classified (principal); R60.0 Localized edema
CPT/HCPCS: 93970

== ENCOUNTER → 2018-07-24 | Outpatient (CLI) | payer BC ==
--- NOTE | 2018-07-24 14:53 | CARD ---
MR#: [id number] Date of Study: 07/24/2018 Ordering Physician: ELAINA CANO, Referring Physician: ELAINA CANO, Tech: Radha Alvarez [facility] APPROVED REPORT EXAM: Two-dimensional and M-mode echocardiogram with Doppler and color Doppler. Other Information Quality : Good INDICATION Lymphadema 2D DIMENSIONS RVDd2.6 (2.9-3.5cm)Left Atrium(2D)3.8 (1.6-4.0cm) IVSd1.2 (0.7-1.1cm)Aortic Root(2D)2.6 (2.0-3.7cm) LVDd4.4 (3.9-5.9cm)LVOT Diameter2.0 (1.8-2.4cm) PWd1.0 (0.7-1.1cm)LVDs1.9 (2.5-4.0cm) FS (%) 30.0 %SV75.9 ml LVEF(%)60.0 (>50%) Aortic Valve AoV Peak Anshu.234.9cm/sAoV VTI54.1cm AO Peak GR.22.1mmHgLVOT Peak Anshu.153.0cm/s AO Mean GR.12mmHgAVA (VMAX)1.95cm2 BRITNEY (VTI)2.10cm2 Mitral Valve MV E Brvjrihu13.7cm/sMV DECEL NRCY213ao MV A Wcndxqdj45.2cm/sE/A Ratio1.0 Tricuspid Valve TR P. Xukwvoqc232mg/sRAP TYIDUFVH7nwXu TR Peak Gr.15arHzYAZQ60buMg Pulmonary Vein S1 Mesyrclj97.3cm/sD2 Wmxctasr02.6cm/s LEFT VENTRICLE The left ventricle is normal size. There is mild concentric left ventricular hypertrophy. The left ve ntricular systolic function is normal and the ejection fraction is within normal range. The Ejection Fraction is 60-65%. There is normal LV segmental wall motion. Tissue Doppler imaging reveals mild lef t ventricular diastolic dysfunction. RIGHT VENTRICLE The right ventricle is normal size. The right ventricular systolic function is normal. ATRIA The left atrium size is normal. The right atrium size is normal. The interatrial septum is intact wit h no evidence for an atrial septal defect or patent foramen ovale as noted on 2-D or Doppler imaging. AORTIC VALVE The aortic valve is sclerotic but opens well. Doppler and Color Flow revealed no significant aortic r egurgitation. There is no significant aortic valvular stenosis. MITRAL VALVE The mitral valve is normal in structure and function. There is no evidence of mitral valve prolapse. There is no mitral valve stenosis. Doppler and Color-flow revealed trace to mild mitral regurgitation . TRICUSPID VALVE The tricuspid valve is normal in structure and function. Doppler and Color Flow revealed mild tricusp id regurgitation. The PA pressure was estimated at 34 mmHg. There is no tricuspid valve stenosis. PULMONIC VALVE The pulmonic valve is not well visualized. Doppler and Color Flow revealed trace to mild pulmonic wili vular regurgitation. There is no pulmonic valvular stenosis. GREAT VESSELS The aortic root is normal in size. The ascending aorta is normal in size. The IVC is normal in size a nd collapses >50% with inspiration. PERICARDIAL EFFUSION There is no evidence of significant pericardial effusion. Critical Notification Critical Value: No <Conclusion> The left ventricular systolic function is normal and the ejection fraction is within normal range. Th e Ejection Fraction is 60-65%. There is normal LV segmental wall motion. Doppler and Color Flow revealed mild tricuspid regurgitation. The PA pressure was estimated at 34 mmH g. Signed by : Elaina Cano, Electronically Approved : 07/24/2018 14:52:39
== END | disposition home or self-care (01) ==
LOC: ECHO 13:53
PROVIDERS: ATTEND Internal Medicine Cardiovascular Disease
DX: I08.8 Other rheumatic multiple valve diseases (principal); I10 Essential (primary) hypertension; E78.5 Hyperlipidemia, unspecified; E78.00 Pure hypercholesterolemia, unspecified; K21.9 Gastro-esophageal reflux disease without esophagitis; Z96.651 Presence of right artificial knee joint; Z87.891 Personal history of nicotine dependence; Z87.11 Personal history of peptic ulcer disease; Z90.710 Acquired absence of both cervix and uterus; Z82.49 Family history of ischemic heart disease and other diseases of the circulatory system; Z83.3 Family history of diabetes mellitus
CPT/HCPCS: 93306

== ENCOUNTER → 2018-09-02 | Outpatient (CLI) | payer BC ==
[~2018-09-02] MED LIST changes: +LIDOCAINE 1%/EPI 1:100,000 50 ML, SODIUM BICARBONATE VIAL 5 MEQ in IV NORMAL SALINE 100... SQ STA
--- NOTE | 2018-09-02 15:29 | CARD ---
MR#: [id number] Date of Study: 09/02/2018 Ordering Physician: ELAINA CANO, Referring Physician: ELAINA CANO, Tech: Diane NGUYEN;PANDA Nickerson; CCMA: LP APPROVED REPORT Patient StatusOUT-PATIENT [employer] Planner: Diane NGUYEN;PANDA Nickerson; [facility] Procedure(s) performed: Endovenous radiofrequency ablation of the right greater saphenous vein. HISTORY The patient is a 63 year-old female with a history of : Lymph edema; Painful Lower Extremities and Le g Heaviness. INDICATION FOR PROCEDURE The indication(s) include : Symptomatic Chronic Venous Insufficiency with Varicose Veins, lower extre mity pain and edema. PROCEDURE NARRATIVE The patient was transferred to the procedure suite and the insufficient saphenous vein was mapped by ultrasound and diagrammed on the underlying skin. The depth and diameter of the vein(s) to be treate d was documented. The varicose tributary veins and suitable access sites were identified and mapped as well. The patient was then positioned supine on the procedure table. The entire right limb was s terilely prepared and the lower extremity and treatment table were sterilely draped. The RF cathete r was placed on the sterile field, flushed and wiped down, prepared, and connected by a sterile cable . The patient was placed in reverse-Trendelenburg position and local anesthesia was instilled in the sk in overlying the access site. A skin incision was made overlying the identified and mapped greater s aphenous vein entry site at the level of the knee. The vein was punctured through the incision and u sing ultrasound guidance and the Seldinger technique a guide wire was introduced through the needle w hich was then exchanged over the guide wire for a 7 F sheath. The guide wire was removed and the she ath was flushed. The RF probe was placed into the vein through the sheath and positioned at a point just distal (about 2 cm) to the entrance point of the superficial epigastric artery using ultrasound guidance. After the RF probe position was verified by the ultrasound, tumescent anesthesia was infiltrated, und er ultrasound guidance, precisely into the perivenuus compartment along the entire length of vein fro m the entry site to the saphenofemoral junction until a "halo" of fluid was noted around the vein. The patient was then placed in Trendelenburg position. After the RF probe position was again confirm ed with ultrasound imaging, moderate external compression was applied over the RF heating element, an d RF energy was applied. The probe was withdrawn sequentially in 6.5 cm steps with slight overlap of 7 cm segments of ablation and monitored to keep the probe temperature at 120 degrees Celsius and the generator output well below its maximum power. Treatment Segments: [6 ] Total Length: [58 ] cm. Total Ablation time: [2.3 ] minutes. Repeat ultrasound of the saphenous vein was performed confirming successful treatment. The catheter and sheath were withdrawn and hemostasis established with direct pressure. After assuring hemostasis , the skin incision over the saphenous vein was closed with a bandage and an external compression bashir ssing was applied from the level of the foot to the most proximal level of the thigh. Procedure Codes: 20528 Endovenous RF, 1st Vein - right GSV Signed by : Elaina Cano, Electronically Approved : 09/02/2018 15:27:50
== END | disposition home or self-care (01) ==
LOC: VNUS 13:32
PROVIDERS: ATTEND Internal Medicine Cardiovascular Disease
DX: I83.811 Varicose veins of right lower extremity with pain (principal)
CPT/HCPCS: 36475; J3490; J7030

== ENCOUNTER → 2018-09-03 | Outpatient (CLI) | payer BC ==
[~2018-09-03] MED LIST changes: -LIDOCAINE 1%/EPI 1:100,000 50 ML, SODIUM BICARBONATE VIAL 5 MEQ in IV NORMAL SALINE 100... SQ STA
--- NOTE | 2018-09-03 18:01 | RAD ---
MR#: [id number] Date of Study: 09/03/2018 Ordering Physician: ELAINA CANO, Referring Physician: ELAINA CANO, Tech: Julito Welch MBA, RDMS, RVT, RDCS, RTR APPROVED REPORT Right Lower Extremity Venous Study for DVT Patient Location: OUT-PATIENT Indications S/P RT GSV ABLATION Vein Imaging (Right) CFV (R): Compressible SFJ (R): Compressible FEM (R): Compressible POP (R): Compressible DFV (R): Compressible PTV (R): Spontaneous GSV (R): Absent Flow Peroneals (R): Spontaneous Doppler Evaluation (Right) CFV (R): Spontaneous POP (R):Spontaneous Findings Grayscale images of the right lower extremity deep veins from the common femoral vein to the poplitea l segment were evaluated and there is no gross evidence of thrombus. Due to prior history of lymphede ma and morbid obesity the images are technically limited. Spectral waveforms do not reveal any obvio us obstruction to flow. Below-knee vessels were not well visualized but grossly no obvious thrombus i s noted. The right great saphenous vein is occluded consistent with recent ablation. Critical Notification Critical Value: No <Conclusion> Negative for right lower extremity DVT Signed by : Elaina Cano, Electronically Approved : 09/03/2018 17:59:18
== END | disposition home or self-care (01) ==
LOC: US 14:50
PROVIDERS: ATTEND Internal Medicine Cardiovascular Disease
DX: I87.2 Venous insufficiency (chronic) (peripheral) (principal); I82.491 Acute embolism and thrombosis of other specified deep vein of right lower extremity; E66.9 Obesity, unspecified; Z87.891 Personal history of nicotine dependence; Z68.39 Body mass index [BMI] 39.0-39.9, adult
CPT/HCPCS: 93971

== ENCOUNTER 2018-11-19 11:20 | Emergency (ER) | payer OTHER, BC ==
[~2018-11-19] VITALS: Ht 154.9 cm; Wt 101.2 kg
[2018-11-19 11:31] VITALS: BP 181/88
--- NOTE | 2018-11-19 12:29 | RAD ---
Examination: 2 views of the right shoulder HISTORY: History of fall, pain COMPARISON: 08/15/2016 FINDINGS: The humerus head is within the glenoid. There is no acute fracture or dislocation identified.Small enthesophyte identified in the undersurface of the acromion. Mild joint space loss identified in the AC joint and the glenohumeral joint likely degeneration. IMPRESSION: 1. No acute osseous findings. 2. Mild degenerative changes glenohumeral joint and the acromioclavicular joint. Electronically signed by: Mikey Catherine MD (11/19/2018 12:25 PM) [id number]
--- NOTE | 2018-11-19 12:29 | RAD ---
EXAM: AP, lateral and lumbosacral spot views of the lumbar spine DATE: 11/19/2018 11:49 AM INDICATION: PT TRIPPED OVER A CHAIR AT WORK AND FELL 1 WEEK AGO. PAIN TO LOW BACK COMPARISON: No Prior FINDINGS: There are 5 nonrib-bearing lumbar-type vertebral bodies. Vertebral body heights are preserved. Mild L5-S1 intervertebral disc height loss. Moderate L3-4, L4-5 and L5-S1 facet degenerative changes. Decreased bone mineral density. Moderate colonic stool content is seen on the frontal view. IMPRESSION: 1. Within the constraints of radiographic imaging, no acute fracture or subluxation. Electronically signed by: Eduardo Rogers MD (11/19/2018 12:26 PM) [facility]
--- NOTE | 2018-11-19 12:53 | PHYS DOC ---
Past Medical History Past Medical History: Hypertension, Other Additional Past Medical Histor: bilateral lower edema Past Surgical History: Hysterectomy, Knee Replacement Alcohol Use: None Drug Use: None Adult General Chief Complaint Chief Complaint: BACK PAIN OR INJURY [facility] Patient is a 63 year old female who presents with low back and shoulder pain after she fell a week ago. The patient denies spontaneous loss of bowel or bladder, saddle numbness or foot drop. She is able to move extremities but states that she has had persistent pain. She denies loss of consciousness or other injury. Review of Systems Review of Systems Constitutional: Denies fever or chills [] Respiratory: Denies cough or shortness of breath [] Cardiovascular: No additional information not addressed in HPI [] GI: Denies abdominal pain, nausea, vomiting, bloody stools or diarrhea [] : Denies dysuria or hematuria [] Musculoskeletal: See history of present illness Integument: Denies rash or skin lesions [] Neurologic: Denies headache, focal weakness or sensory changes [] Endocrine: Denies polyuria or polydipsia [] All other systems were reviewed and found to be within normal limits, except as documented in this note. Allergies Allergies Allergies Coded Allergies Type Severity Reaction Last Updated Verified No Known Drug Allergies 01/25/14 No Physical Exam Physical Exam Constitutional: Well developed, well nourished, no acute distress, non-toxic appearance. [] Cardiovascular:Heart rate regular rhythm, no murmur [] Lungs & Thorax: Bilateral breath sounds clear to auscultation [] Abdomen: Bowel sounds normal, soft, no tenderness, no masses, no pulsatile masses. [] Skin: Warm, dry, no erythema, no rash. [] Back: Lumbar tenderness, no point spinal tenderness or step offs noted, no CVA tenderness. [] Extremities: tenderness to right shoulder with no gross deformity noted, no cyanosis, no clubbing, ROM slightly decreased due to pain, no edema. [] Neurologic: Alert and oriented X 3, normal motor function, normal sensory function, no focal deficits noted. [] Psychologic: Affect normal, judgement normal, mood normal. [] Current Patient Data Vital Signs Vital Signs Date Time Temp Pulse Resp B/P (MAP) Pulse Ox O2 Delivery O2 Flow Rate FiO2 11/19/18 11:31 97.7 64 16 181/88 (119) 98 Room Air 97.7 EKG EKG [] Radiology/Procedures Radiology/Procedures [] PATIENT: ANGELA GARZA ACCOUNT: [id number] : 1955 LOCATION: ER AGE: 63 SEX: F EXAM STATUS: REG ER ORD. PHYSICIAN: TARA LIN APRN REASON: fell one week ago, continued pain PROCEDURE: SHOULDER 2+V RIGHT Examination: 2 views of the right shoulder HISTORY: History of fall, pain COMPARISON: 08/15/2016 FINDINGS: The humerus head is within the glenoid. There is no acute fracture or dislocation identified.Small enthesophyte identified in the undersurface of the acromion. Mild joint space loss identified in the AC joint and the glenohumeral joint likely degeneration. IMPRESSION: 1. No acute osseous findings. 2. Mild degenerative changes glenohumeral joint and the acromioclavicular joint. Electronically signed by: Mikey Catherine MD (11/19/2018 12:25 PM) [id number] DICTATED and SIGNED BY: MIKEY CATHERINE MD DATE: 11/19/18 1223 PATIENT: ANGELA GARZA ACCOUNT: [id number] : 1955 LOCATION: ER AGE: 63 SEX: F EXAM STATUS: REG ER ORD. PHYSICIAN: TARA LIN APRN REASON: fell one week ago, continued pain PROCEDURE: LUMBAR SPINE 2-3V EXAM: AP, lateral and lumbosacral spot views of the lumbar spine DATE: 11/19/2018 11:49 AM INDICATION: PT TRIPPED OVER A CHAIR AT WORK AND FELL 1 WEEK AGO. PAIN TO LOW BACK COMPARISON: No Prior FINDINGS: There are 5 nonrib-bearing lumbar-type vertebral bodies. Vertebral body heights are preserved. Mild L5-S1 intervertebral disc height loss. Moderate L3-4, L4-5 and L5-S1 facet degenerative changes. Decreased bone mineral density. Moderate colonic stool content is seen on the frontal view. IMPRESSION: 1. Within the constraints of radiographic imaging, no acute fracture or subluxation. Electronically signed by: Eduardo Munoz MD (11/19/2018 12:26 PM) [facility] DICTATED and SIGNED BY: EDUARDO MUNOZ MD DATE: 11/19/18 1222 Course & Med Decision Making Course & Med Decision Making Pertinent Labs and Imaging studies reviewed. (See chart for details) [] Staff Physician Addendum: I was working in the ER during the course of this patient's visit. I was available for consultation as needed, but I was not directly involved in the care of this patient. Dragon Disclaimer Dragon Disclaimer This electronic medical record was generated, in whole or in part, using a voice recognition dictation system. Departure Departure Impression: Primary Impression: Shoulder pain Additional Impression: Back pain Disposition: 01 HOME, SELF-CARE Condition: STABLE Referrals: OTILIA RICHARDS MD (PCP) Patient Instructions: Back Pain, Adult, Shoulder Pain Additional Instructions: There were no acute findings on imaging. Follow-up with your primary care provider if not improving in one week. He may take ibuprofen or Tylenol for pain.` Problem Qualifiers TARA LIN APRN Nov 19, 2018 12:53 KARYNA RASMUSSEN MD Nov 20, 2018 21:17
== END 2018-11-19 13:01 | disposition home or self-care (01) ==
LOC: ER 11:20
DX: M54.5 Low back pain (principal); M25.511 Pain in right shoulder; G89.11 Acute pain due to trauma; I10 Essential (primary) hypertension; Z96.659 Presence of unspecified artificial knee joint; Z90.710 Acquired absence of both cervix and uterus; W07.XXXA Fall from chair, initial encounter; Y93.89 Activity, other specified; Y92.69 Other specified industrial and construction area as the place of occurrence of the external cause; Y99.0 Civilian activity done for income or pay
CPT/HCPCS: 72100; 73030; 99283

== ENCOUNTER → 2019-02-10 | Outpatient (CLI) | payer BC ==
--- NOTE | 2019-02-10 16:22 | RAD ---
EXAM: Right lower extremity venous Doppler sonogram. HISTORY: Pain and swelling. TECHNIQUE: Lucas scale and color Doppler sonographic evaluation of the right lower extremity veins with spectral waveform analysis was performed. FINDINGS: There is normal color flow, normal compressibility and there are normal spectral waveforms in the common femoral, superficial femoral, and popliteal veins. The calf veins are not well seen due to body habitus and soft tissue swelling. IMPRESSION: No Doppler evidence of lower extremity deep venous thrombosis, with nondiagnostic evaluation of the calf veins due to body habitus and soft tissue swelling. Electronically signed by: Luzmaria Brownlee MD (02/10/2019 4:19 PM) [id number]
== END | disposition home or self-care (01) ==
LOC: US 14:08
PROVIDERS: ATTEND Internal Medicine
DX: M79.604 Pain in right leg (principal); I89.0 Lymphedema, not elsewhere classified; M79.89 Other specified soft tissue disorders
CPT/HCPCS: 93971

== ENCOUNTER → 2019-02-11 | Outpatient (CLI) | payer BC ==
[2019-02-11 07:42] LABS: BASO % 0 % (0-3); BILIRUBIN,URINE NEGATIVE (NEG); CLARITY,URINE CLEAR; COLOR,URINE YELLOW; EOS # 0.1 x10^3/uL (0.0-0.7); EOS % 2 % (0-3); HEMOGLOBIN 12.1 g/dL (12.0-15.5); LYMPH # 1.5 x10^3/uL (1.0-4.8); LYMPH % 37 % (24-48); MEAN CORPUSCULAR HEMOGLOBIN 25 pg (25-35); MEAN CORPUSCULAR HGB CONC 31 g/dL (31-37); MEAN CORPUSCULAR VOLUME 79 fL (79-100); MONO # 0.4 x10^3/uL (0.0-1.1); MONO % 10 % (0-9); NEUT % 50 % (31-73); NITRITE,URINE NEGATIVE (NEG); PH,URINE 6.5; PLATELET COUNT 231 x10^3/uL (140-400); PROTEIN,URINE NEGATIVE (NEG-TRACE); RED BLOOD COUNT 4.92 x10^6/uL (3.50-5.40); RED CELL DISTRIBUTION WIDTH 15.2 % (11.5-14.5); WHITE BLOOD COUNT 3.9 x10^3/uL (4.0-11.0)
[2019-02-11 07:54] LABS: BACTERIA,URINE MANY /HPF (0-FEW); SQUAMOUS EPITHELIAL CELL,UR MANY /LPF
[2019-02-11 08:01] LABS: RBC,URINE OCC /HPF (0-2)
[2019-02-11 08:06] LABS: ALBUMIN 3.2 g/dL (3.4-5.0); ALBUMIN/GLOBULIN RATIO 0.7 (1.0-1.7); CALCIUM 8.9 mg/dL (8.5-10.1); CREATININE 0.7 mg/dL (0.6-1.0); GFR 102.3; TOTAL BILIRUBIN 0.5 mg/dL (0.2-1.0); TOTAL PROTEIN 7.9 g/dL (6.4-8.2)
[2019-02-11 08:13] LABS: CHOLESTEROL/HDL RATIO 3.1
[2019-02-12 00:09] LABS: HEMOGLOBIN A1C 6.3 % (4.8-5.6)
== END | disposition home or self-care (01) ==
LOC: LAB 07:10
PROVIDERS: ATTEND Internal Medicine
DX: I10 Essential (primary) hypertension (principal); N39.0 Urinary tract infection, site not specified; R73.03 Prediabetes
CPT/HCPCS: 36415; 80053; 80061; 81001; 83036; 84443; 85025; 87086; 87186

== ENCOUNTER → 2020-01-04 | Outpatient (CLI) | payer BC ==
[~2020-01-04] MED LIST changes: +LIDOCAINE 2%/EPI 1:100,000 20 ML VIAL. IJ ONE; -PANT40TA3 PO; +PANT40TA77 PO
--- NOTE | 2020-01-04 19:15 | RAD ---
Examination: 1. Diagnostic left breast ultrasound. 2. Left breast stereotactic biopsy. 3. Left breast postprocedure mammogram. INDICATION: 64-year-old woman recalled from screening for developing lateral left breast calcifications, initially suspected to be possibly degenerating fibroadenomas. COMPARISON: 10/07/2018, 12/11/2019 left mammograms. Left diagnostic mammogram of 12/23/2019 FINDINGS: My colleague reviewing the case referred to us for biopsy considered the possibility that the new cluster of calcifications in the lateral left breast recommended for biopsy by the referring radiologist could represent a degenerating fibroadenoma that was potentially visible on ultrasound and amenable to ultrasound-guided core needle biopsy. As such, we assessed the visibility of the new cluster of calcifications in the lateral left breast with ultrasound by targeted ultrasound of the left breast at the 3:00 position. No mass was identified and the cluster of calcifications recalled from screening were not readily visible on ultrasound. As such, decision was made to proceed with stereotactic biopsy of the left breast from a craniocaudal approach. Using standard sterile technique, stereotactic mammographic imaging guidance and local anesthesia with lidocaine to the skin surface and lidocaine with epinephrine deeper in the left breast, multiple vacuum assisted 9 gauge core biopsy samples were obtained and the specimen was radiographed. The specimen radiographs revealed the presence of calcifications within the specimen. Thereafter, a wilian-shaped biopsy marker was deployed in the biopsy site, satisfactory biopsy marker deployment was confirmed with an additional stereotactic plant maintenance technician image, and hemostasis ensured with direct breast compression for 10 minutes following needle removal. The patient tolerated the procedure without incident. The puncture sites were dressed in post procedure instructions were reviewed prior to patient discharge from imaging suite. Diagnostic post procedure left mammogram showed satisfactory deployment of the biopsy marker in the upper outer quadrant left breast with no significant residual associated calcifications targeted for biopsy. The more medial and inferior cluster of calcifications which were not recommended for biopsy are incidentally noted. IMPRESSION: Successful left breast stereotactic biopsy of developing calcifications in the upper outer quadrant left breast without a sonographic correlate. Pathology results are pending. Electronically signed by: Pal Snell MD (01/04/2020 7:12 PM) [facility]
--- NOTE | 2020-01-05 17:06 | PATHOLOGY ---
[facility] Accession Number: [id number] . 01 Material submitted: . breast - LEFT BREAST TISSUE. Modifiers: left . 01 Clinical history: . Left breast microcalcifications . 02 Diagnosis: Breast tissue, left breast stereotactic needle biopsies: - Stromal fibrosis, focal, with scattered microcalcifications identified. (JPM:rolled glass crosscutter; 01/05/2020) MBR 01/05/2020 1336 Local . 02 Comment: Sections of the left breast stereotactic needle biopsy reveal segments of breast tissue. There are foci of stromal fibrosis. There are scattered, focally clustered, microcalcifications associated with small benign ducts and atrophic lobular units. There is no atypia or evidence of malignancy. Please correlate with radiographic findings. (JPM:rolled glass crosscutter; 01/05/2020) . 02 Electronically signed: . Collins Gallegos MD, Pathologist NPI- [id number] . 01 Gross description: . The specimen is received in formalin, labeled "Eliza Serrano, left breast". Received within a plastic cassette are multiple needle cores of fibrofatty tissue measuring 3.2 x 3.0 x 0.5 cm in aggregate dimensions. The specimen is submitted entirely in cassettes A1 through A3. The cold ischemic time is 10 minutes. The total formalin fixation time is 8 hours and 5 minutes. (CAA; 01/04/2020) QAC/QAC 01/04/2020 1630 Local . 02 Pathologist provided ICD-10: N60.32 . 02 CPT . 995823 Specimen Comment: A courtesy copy of this report has been sent to [phone], [phone] Specimen Comment: [id number] Specimen Comment: Report sent to / DR RICHARDS Performed at: 01 [facility] [address], [place], [place] [id number] MD Dale Cardenas MD Phone: [phone] Performed at: 02 [facility] [address] [place], [place] [id number] MD Collins Gallegos MD Phone: [phone]
== END | disposition home or self-care (01) ==
LOC: US 11:56
PROVIDERS: ATTEND Internal Medicine
DX: R92.8 Other abnormal and inconclusive findings on diagnostic imaging of breast (principal); N60.32 Fibrosclerosis of left breast
CPT/HCPCS: 19081; 76641; 77022; 77065; 88305; C1713; 19085

== ENCOUNTER → 2020-03-21 | Outpatient (CLI) | payer BC ==
[~2020-03-21] MED LIST changes: -LIDOCAINE 2%/EPI 1:100,000 20 ML VIAL. IJ ONE
[2020-03-21 12:37] LABS: BASO % 0 % (0-3); EOS # 0.1 x10^3/uL (0.0-0.7); EOS % 1 % (0-3); HEMATOCRIT 39.4 % (36.0-47.0); HEMOGLOBIN 12.5 g/dL (12.0-15.5); LYMPH # 1.8 x10^3/uL (1.0-4.8); LYMPH % 39 % (24-48); MEAN CORPUSCULAR HEMOGLOBIN 25 pg (25-35); MEAN CORPUSCULAR HGB CONC 32 g/dL (31-37); MEAN CORPUSCULAR VOLUME 80 fL (79-100); MONO # 0.5 x10^3/uL (0.0-1.1); MONO % 10 % (0-9); NEUT # 2.2 x10^3/uL (1.8-7.7); NEUT % 49 % (31-73); PLATELET COUNT 207 x10^3/uL (140-400); RED BLOOD COUNT 4.94 x10^6/uL (3.50-5.40); RED CELL DISTRIBUTION WIDTH 15.3 % (11.5-14.5); WHITE BLOOD COUNT 4.5 x10^3/uL (4.0-11.0)
[2020-03-21 12:41] LABS: BILIRUBIN,URINE NEGATIVE (NEG); CLARITY,URINE CLEAR; COLOR,URINE YELLOW; NITRITE,URINE NEGATIVE (NEG); PROTEIN,URINE NEGATIVE (NEG-TRACE)
[2020-03-21 12:55] LABS: ALBUMIN 3.4 g/dL (3.4-5.0); ALBUMIN/GLOBULIN RATIO 0.7 (1.0-1.7); CALCIUM 8.9 mg/dL (8.5-10.1); CREATININE 0.9 mg/dL (0.6-1.0); GFR 76.3; POTASSIUM 4.2 mmol/L (3.5-5.1); TOTAL BILIRUBIN 0.5 mg/dL (0.2-1.0)
[2020-03-21 12:56] LABS: CHOLESTEROL/HDL RATIO 2.3
[2020-03-21 12:58] LABS: BACTERIA,URINE 0 /HPF (0-FEW); RBC,URINE 0 /HPF (0-2); SQUAMOUS EPITHELIAL CELL,UR FEW /LPF; WBC,URINE 0 /HPF (0-4)
== END | disposition home or self-care (01) ==
LOC: LAB 12:08
PROVIDERS: ATTEND Internal Medicine
DX: I10 Essential (primary) hypertension (principal)
CPT/HCPCS: 36415; 80053; 80061; 81001; 83036; 84443; 85025

== ENCOUNTER → 2021-07-21 | Outpatient (CLI) | payer BC, MEDICARE ==
[~2021-07-21] MED LIST changes: -LISI-338 PO; +LISI-517 PO
[2021-07-21 12:53] LABS: BASO % 1 % (0-3); EOS # 0.1 x10^3/uL (0.0-0.7); EOS % 3 % (0-3); HEMATOCRIT 39.2 % (36.0-47.0); HEMOGLOBIN 12.5 g/dL (12.0-15.5); LYMPH # 1.7 x10^3/uL (1.0-4.8); LYMPH % 40 % (24-48); MEAN CORPUSCULAR HEMOGLOBIN 26 pg (25-35); MEAN CORPUSCULAR HGB CONC 32 g/dL (31-37); MEAN CORPUSCULAR VOLUME 80 fL (79-100); MONO # 0.4 x10^3/uL (0.0-1.1); MONO % 10 % (0-9); NEUT % 47 % (31-73); PLATELET COUNT 212 x10^3/uL (140-400); RED BLOOD COUNT 4.88 x10^6/uL (3.50-5.40); WHITE BLOOD COUNT 4.2 x10^3/uL (4.0-11.0)
[2021-07-21 12:59] LABS: BILIRUBIN,URINE NEGATIVE (NEG); CLARITY,URINE CLEAR; COLOR,URINE YELLOW; NITRITE,URINE NEGATIVE (NEG); PH,URINE 6.5 (<5.0-8.0); PROTEIN,URINE NEGATIVE (NEG-TRACE); UROBILINOGEN,URINE 0.2 mg/dL (0.2 mg/dL)
[2021-07-21 13:07] LABS: BACTERIA,URINE 0 /HPF (0-FEW); RBC,URINE 0 /HPF (0-2); WBC,URINE 0 /HPF (0-4)
[2021-07-21 13:12] LABS: ALBUMIN 3.7 g/dL (3.4-5.0); ALBUMIN/GLOBULIN RATIO 0.9 (1.0-1.7); CALCIUM 9.5 mg/dL (8.5-10.1); GFR 67.1; POTASSIUM 4.1 mmol/L (3.5-5.1); TOTAL BILIRUBIN 0.7 mg/dL (0.2-1.0)
[2021-07-21 13:13] LABS: CHOLESTEROL/HDL RATIO 2.2
[2021-07-22 01:10] LABS: HEMOGLOBIN A1C 6.2 % (4.8-5.6)
== END ==
LOC: LAB 12:11
PROVIDERS: ATTEND Internal Medicine
DX: I10 Essential (primary) hypertension (principal); R73.09 Other abnormal glucose
CPT/HCPCS: 36415; 80053; 80061; 81001; 83036; 84443; 85025

== ENCOUNTER → 2021-11-03 | Outpatient (CLI) | payer MEDICARE ==
[~2021-11-03] MED LIST changes: -LISI-517 PO; +LISI5TAB15 PO
--- NOTE | 2021-11-03 16:26 | RAD ---
EXAMINATION: US BILATERAL LOWEREXTREMITY VENOUS DOPPLER (LOWER EXTREMITY VENOUS ULTRASOUND) CLINICAL HISTORY: Bilateral lower extremity lymphedema, greater on the right TECHNIQUE: Sonographic grayscale images obtained of the bilateral lower extremity deep venous systems with color flow Doppler, compression, and augmentation techniques as indicated. Images obtained and stored in a permanent archive. COMPARISON: None FINDINGS: RIGHT: No evidence of absent flow or incompressibility within the common femoral vein, femoral vein, or popl iteal vein. Visualized calf veins appear patent on limited evaluation. LEFT: No evidence of absent flow or incompressibility within the common femoral vein, femoral vein, or popl iteal vein. Visualized calf veins appear patent on limited evaluation. IMPRESSION: No evidence of bilateral lower extremity DVT. Electronically signed by: Adilson Do DO (11/03/2021 4:23 PM) [id number]
== END ==
LOC: US 15:40
PROVIDERS: ATTEND Internal Medicine
DX: I89.0 Lymphedema, not elsewhere classified (principal); R29.6 Repeated falls; R60.0 Localized edema
CPT/HCPCS: 93970

== ENCOUNTER → 2021-11-14 | Outpatient (CLI) | payer MEDICARE ==
--- NOTE | 2021-11-14 12:35 | KCIC ---
EXAMINATION: CT HEAD/BRAIN WO CLINICAL HISTORY: Frequent falls, headaches, history of hypertension. TECHNIQUE: Serial axial images without IV contrast were obtained from the vertex to the foramen magnu m. CT Dose Reduction Employed: One or more of the following individualized dose reduction techniques wer e utilized for this examination: 1. Automated exposure control 2. Adjustment of the mA and/or kV ac cording to patient size 3. Use of iterative reconstruction technique. COMPARISON: 08/05/2016 FINDINGS: Acute Change: No evidence of an acute infarct or other acute parenchymal process. Hemorrhage: No evidence of acute intracranial hemorrhage. Mass Lesion/Mass Effect: No evidence of intracranial mass or extraaxial fluid collection. No signific ant mass effect. Chronic Change: Scattered patchy foci of hypoattenuation in the supratentorial white matter, nonspeci fic but likely represents minimal microvascular ischemia. Atherosclerotic calcification of the intrac ranial portion of the bilateral internal carotid arteries. Parenchyma: Parenchyma otherwise within normal limits for age. Ventricles: Ventricles within normal limits for age. Paranasal Sinuses and Skull Base: Visualized paranasal sinuses clear. Visualized skull base and soft tissues unremarkable. IMPRESSION: No evidence of acute intracranial abnormality. Electronically signed by: Adilson Do DO (11/14/2021 12:32 PM) [id number]
== END ==
LOC: KCIC CT 11:08
PROVIDERS: ATTEND Internal Medicine
DX: I65.23 Occlusion and stenosis of bilateral carotid arteries (principal); R29.6 Repeated falls; R51.9 Headache, unspecified; Z86.79 Personal history of other diseases of the circulatory system
CPT/HCPCS: 70450

== ENCOUNTER → 2021-12-05 | Outpatient (CLI) | payer MEDICARE ==
--- NOTE | 2021-12-05 12:53 | KCIC ---
INDICATION: Screening for osteopenia/osteoporosis. Reason: ESTROGEN DEF / Spl. Instructions: / Hist ory: COMPARISON: October 2015 TECHNIQUE: Bone densitometry was performed through the lumbar spine and proximal femur. IMPRESSION: Lumbar Spine: BMD: 0.9 T-Score: -1.3 Range: Osteopenic. Increased by 4 percent from prior. Proximal Femur: BMD: 0.79 T-Score: -1.2 Range: Osteopenic. Decreased by 1 percent from prior. World Health Organization Criteria for Bone Density: T-Score: > -1.0: Normal Range < -1.0 to -2.5: Osteopenic Range < -2.5: Osteoporotic Range Electronically signed by: Ji Carlos MD (12/05/2021 12:50 PM) [id number]
== END ==
LOC: KCIC DEXA 10:26
PROVIDERS: ATTEND Internal Medicine
DX: M85.89 Other specified disorders of bone density and structure, multiple sites (principal); E28.39 Other primary ovarian failure
CPT/HCPCS: 77080

== ENCOUNTER → 2022-03-05 | Outpatient (CLI) | payer MEDICARE ==
[2022-03-05 13:54] LABS: ALBUMIN 3.7 g/dL (3.4-5.0); ALBUMIN/GLOBULIN RATIO 0.9 (1.0-1.7); CALCIUM 9.1 mg/dL (8.5-10.1); CHOLESTEROL/HDL RATIO 2.1; CREATININE 0.8 mg/dL (0.6-1.0); GFR 86.8; POTASSIUM 3.9 mmol/L (3.5-5.1); TOTAL BILIRUBIN 0.8 mg/dL (0.2-1.0)
[2022-03-05 14:33] LABS: BACTERIA,URINE 0 /HPF (0-FEW); RBC,URINE 0 /HPF (0-2)
== END ==
LOC: LAB 13:04
PROVIDERS: ATTEND Internal Medicine
DX: I10 Essential (primary) hypertension (principal); R73.09 Other abnormal glucose; E78.5 Hyperlipidemia, unspecified; N39.0 Urinary tract infection, site not specified
CPT/HCPCS: 36415; 80053; 80061; 81001; 83036; 87086